=== PATIENT | female | born 1965 | race Two or more races ===

== ENCOUNTER 2017-12-07 02:50 | Emergency (ER) | payer OTHER ==
[~2017-12-07] VITALS: Ht 157.5 cm; Wt 89.8 kg
[2017-12-07 04:51] LABS: Urine Pregnacy Test Negative (Negative)
[2017-12-07 05:02] LABS: Alcohol, Urine < 3.0 mg/dL (0-5); Amphetamine Screen, Urine NEGATIVE (NEGATIVE); Barbiturate Scree,Urine NEGATIVE (NEGATIVE); Benzodiazephine Screen, Urine NEGATIVE (NEGATIVE); Cannabinoid Screen, Urine NEGATIVE (NEGATIVE); Cocaine Screen, Urine NEGATIVE (NEGATIVE); Opiate Scree,Urine NEGATIVE (NEGATIVE); Phencyclidine Screen, Urine NEGATIVE (NEGATIVE)
[2017-12-07 07:01] VITALS: BP 122/69
== END 2017-12-07 08:36 | disposition home or self-care (01) ==
LOC: ER 02:52
DX: S40.011A Contusion of right shoulder, initial encounter (principal); S99.921A Unspecified injury of right foot, initial encounter; W19.XXXA Unspecified fall, initial encounter; Y93.89 Activity, other specified; Y99.8 Other external cause status; Y92.89 Other specified places as the place of occurrence of the external cause
CPT/HCPCS: 70450; 73030; 73630; 80307; 81025